=== PATIENT | female | born 1980 | race Caucasian/White ===

== ENCOUNTER → 2016-11-17 | Outpatient (CLI) | payer MEDICAID ==
--- NOTE | 2016-11-17 16:46 | RADIOLOGY REPORT (SQ) ---
EXAM DESCRIPTION: KNEE RIGHT 4 VIEWS COMPLETED DATE/TIME: 11/17/2016 4:32 pm REASON FOR STUDY: PAIN IN RIGHT KNEE M25.561 PAIN IN RIGHT KNEE COMPARISON: None. NUMBER OF VIEWS: Four views. TECHNIQUE: AP, lateral, and both oblique radiographic images acquired of the right knee. LIMITATIONS: None. FINDINGS: MINERALIZATION: Normal. BONES: No acute fracture or dislocation. No worrisome bone lesions. No significant osteophytes. JOINT: No effusion. No chondrocalcinosis. OTHER: No other significant finding. IMPRESSION: No significant findings. TECHNICAL DOCUMENTATION: JOB ID: [id number] [employer]- All Rights Reserved
== END ==
LOC: OD 16:11
PROVIDERS: ATTEND Family Medicine
DX: M25.561 Pain in right knee (principal)

== ENCOUNTER 2019-07-02 02:42 | Emergency (ER) | payer BC, MEDICAID ==
--- NOTE | 2019-07-02 03:35 | RADIOLOGY REPORT (SQ) ---
Left ankle radiographs: 07/02/2019 2:33 AM [employer] TEACHER HISTORY: 39-year-old patient with left ankle pain . COMPARISON: None available TECHNIQUE: AP, lateral, mortise views of the left ankle were obtained. FINDINGS: There are no findings to suggest an acute fracture or subluxation within the left ankle. No abnormal soft tissue swelling is seen. No abnormal calcification, periarticular osteopenia, or gross erosions are seen. The joint spaces are preserved. There is a incidental calcaneal heel spur present. IMPRESSION: There are no findings to suggest an acute fracture or subluxation within the left ankle.
[2019-07-02] MEDS ORDERED: ACETAMINOPHEN 325 MG TABLET PO ONE (04:00)
--- NOTE | 2019-07-02 08:03 | ER Document Report ---
HPI - HPI Patient complains to provider of: Left ankle pain Time Seen by Provider: 07/02/19 08:02 Onset: Other - 2 weeks Quality of pain: Achy, Throbbing Severity: Moderate Pain Level: 2 Context: 39-year-old female presents emergency department with complaints of left foot and ankle pain for the past 2 weeks. She denies trauma. Denies falling or rolling her ankle. Denies past medical history of injury to the foot or ankle. She reports she works at [employer] and is on her feet at least 9 hours a day 5 days a week. She reports she has noticed pain to her left foot for the past 2 weeks. Reports she switched her shoes, has worn boots, placed pads in her shoes wit hout relief of symptoms. She reports the pain is worse when she first wakes up. She reports she has taken Tylenol Motrin without relief of symptoms. Patient also reports she has had dental pain for the past 3 weeks. Reports it Broke off and she has had pain since that time. Does not have a dental appointment until 2 weeks from now. Associated Symptoms: None Exacerbated by: Walking Relieved by: Denies Similar symptoms previously: No Recently seen / treated by doctor: No - CONSTITUTIONAL Constitutional: DENIES: Fever, Chills - EENT EENT: DENIES: Sore Throat, Ear Pain, Eye problems - NEURO Neurology: DENIES: Headache, Weakness, Vision blurred, Dizzinesss / Vertigo - CARDIOVASCULAR Cardiovascular: DENIES: Chest pain - RESPIRATORY Respiratory: DENIES: Trouble Breathing, Coughing - GASTROINTESTINAL Gastrointestinal: DENIES: Abdominal Pain, Black / Bloody Stools - URINARY Urinary: DENIES: Dysuria, Urgency, Frequency - REPRODUCTIVE Reproductive: DENIES: : - MUSCULOSKELETAL Musculoskeletal: REPORTS: Extremity pain - left ankle Past Medical History - General Information source: Patient - Social History Smoking Status: Current Every Day Smoker Cigarette use (# per day): Yes Chew tobacco use (# tins/day): No Frequency of alcohol use: None Drug Abuse: None Occupation: [employer] Lives with: Family Family History: None Patient has suicidal ideation: No Patient has homicidal ideation: No - Medical History Medical History: Negative Pulmonary Medical History: Denies: Hx Tuberculosis Musculoskeletal Medical History: Reports Hx Musculoskeletal Trauma Psychiatric Medical History: Reports: Hx Anxiety Traumatic Medical History: Reports: Hx Fractures, Hx Spine Fracture Past Surgical History: Reports: Hx Appendectomy, Hx Tonsillectomy. Denies: Hx Section, Hx Hysterectomy, Hx Mastectomy, Hx Pacemaker, Hx Tubal Ligation - Immunizations Immunizations up to date: Yes Hx Diphtheria, Pertussis, Tetanus Vaccination: Yes Vertical Provider Document - CONSTITUTIONAL Agree With Documented VS: Yes Exam Limitations: No Limitations General Appearance: WD/WN, No Apparent Distress - INFECTION CONTROL TRAVEL OUTSIDE OF THE [place] IN LAST 30 DAYS: No - HEENT HEENT: Atraumatic, Normocephalic Mouth Diagram: 1 - Complains of pain. Dental cavity noted no erythema no swelling opens mouth wide clear voice, no Hawk's no trismus - NECK Neck: Normal Inspection, Supple. negative: Lymphadenopathy-Left, L ymphadenopathy-Right - RESPIRATORY Respiratory: Breath Sounds Normal, No Respiratory Distress - CARDIOVASCULAR Cardiovascular: Regular Rate, Regular Rhythm - MUSCULOSKELETAL/EXTREMETIES Musculoskeletal/Extremeties: MAEW, FROM, Tender - Left foot/ankle medially tender to palpate no obvious deformity. Good pedal pulse, cap refill less than 2 seconds. No erythema no swelling no warmth noted. Denies anterior pain. - NEURO Level of Consciousness: Awake, Alert, Appropriate Motor/Sensory: No Motor Deficit - DERM Integumentary: Warm, Dry Adult Front & Back Diagram: 1 - Reports pain with touch pain with walking. Course - Re-evaluation Re-evalutation: 07/02/19 10:29 39-year-old female presents with left medial foot and ankle pain for the past 2 weeks with no history of trauma. Also complains of dental pain. Patient was treated postop shoe instructed on Motrin and importance of follow-up with podiatry. Also provided with a prescription for Pen-Vee K for dental pain. She has an appointment in 2 weeks with a dentist. Possible plantar fasciitis even though she is not tender on the plantar area. She was instructed on foot exercises ice Motrin. She verbalized understanding to all instruction 07/02/19 10:30 Ankle X-Ray 07/02/19 03:03 IMPRESSION: There are no findings to suggest an acute fracture or subluxation within the left ankle. - Vital Signs Vital signs: Temp Pulse Resp BP Pulse Ox 97.7 F 85 20 128/79 H 98 07/02/19 02:50 07/02/19 02:50 07/02/19 02:50 07/02/19 02:50 07/02/19 02:50 - Diagnostic Test Radiology reviewed: Image reviewed, Reports reviewed Procedures - Immobilization Left Foot Immobilizer type: Post-op shoe Performed by: RN Post-Proc Neuro Vasc Exam: Unchanged from pre-exam Discharge - Discharge Clinical Impression: left ankle/foot pain, Pain, dental Condition: Stable Disposition: HOME, SELF-CARE Instructions: Exercises for the Foot Muscles ([facility]), Ice & Elevation ([facility]), Penicillin V K ([facility]), Post-Op Shoe ([facility]), Toothache ([facility]) Additional Instructions: *You have been evaluated for left foot ankle pain, dental pain *Maintain the postop shoe for comfort *Foot exercises as discussed, wear good supporting shoes *Rest/Ice/Elevate *Follow up with the dentist as scheduled *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 Your blood pressure was elevated today. This may be because you were anxious, in pain or because you need medication. It is im portant to follow up with your primary care provider for full evaluation. Prescriptions: Ibuprofen [Motrin 800 mg Tablet] 800 mg PO TID #15 tablet Penicillin V Potassium [Penicillin Vk 500 mg Tablet] 500 mg PO BID #20 tablet Forms: Elevated Blood Pressure, Smoking Cessation Education, Return to Work Referrals: AVA JASON DPM [ACTIVE STAFF] - Follow up as needed ALCIRA CUELLAR DPM [ACTIVE STAFF] - Follow up as needed LACI WEST DPM [ACTIVE STAFF] - Follow up as needed
[2019-07-02] MEDS ORDERED: IBUPROFEN 800 MG TABLET PO ONE (08:20)
[2019-07-02 08:46] VITALS: BP 119/63
== END 2019-07-02 08:44 | disposition home or self-care (01) ==
LOC: ER 02:42
DX: M25.572 Pain in left ankle and joints of left foot (principal); M79.672 Pain in left foot; K02.9 Dental caries, unspecified; K08.89 Other specified disorders of teeth and supporting structures; F17.210 Nicotine dependence, cigarettes, uncomplicated
CPT/HCPCS: 99283